=== PATIENT | male | born 1960 | race Caucasian/White ===

== ENCOUNTER 2023-11-01 08:59 | Outpatient (CLI) | payer MEDICARE, SELFPAY ==
[2023-11-01 09:36] LABS: Alanine Aminotransferase 48 U/L (6-50); Albumin Level 4.3 g/dL (3.5-5.1); Alkaline Phosphatase 85 U/L (38-126); Anion Gap 8 mmol/L (8-16); Aspartate Amino Transferase 40 U/L (17-59); Bilirubin,Total 0.5 mg/dL (0.2-1.3); Blood Urea Nitrogen 22 mg/dL (9-20); Calcium 9.1 mg/dL (8.4-10.2); Carbon Dioxide 28 mmol/L (22-30); Chloride 102 mmol/L (98-107); Cholesterol 207 mg/dL (0-200); Estimated Glomerular Filt Rate > 60; Glucose 114 mg/dL (65-110); HDL Direct 33 mg/dL; Potassium 4.5 mmol/L (3.4-5.0); Sodium 138 mmol/L (137-145); Triglycerides 193 mg/dL (<150)
[2023-11-01 09:47] LABS: LDL Cholesterol Direct 137 mg/dL
[2023-11-01 10:06] LABS: Prostate Specific Antigen 0.1 ng/mL (< OR = 4.0)
== END 2023-11-01 09:00 | disposition home or self-care (01) ==
PROVIDERS: PCP Nurse Practitioner; Referring Provider Orthopaedic Surgery; Visit Provider Nurse Practitioner
DX: Z79.899 Other long term (current) drug therapy (principal); Z13.29 Encounter for screening for other suspected endocrine disorder; Z12.5 Encounter for screening for malignant neoplasm of prostate; Z85.46 Personal history of malignant neoplasm of prostate; E55.9 Vitamin D deficiency, unspecified
CPT/HCPCS: 36415; 80053; 80061; 84153; 84443

== ENCOUNTER 2023-11-29 15:29 | Outpatient (CLI) | payer MEDICARE, SELFPAY ==
--- NOTE | ~2023-11-29 | CT_ITS ---
CT Scan of the Chest without Contrast: Clinical Indication: Lung cancer screening, personal history of nicotine dependence Technique: Contiguous sections were acquired throughout the chest without intravenous contrast. Dose reduction technique was used on this scan by utilizing automated exposure control and iterative recon struction technique. The dose-length product (DLP) was 143.08 mGy-cm. Findings: There is no evidence of any significant mediastinal, hilar or axillary lymphadenopathy. The mediastin al soft tissues appear normal. There is no evidence of pleural or pericardial effusion. The lungs are clear. No pulmonary nodules or infiltrates are noted. There is mild emphysema with mini mal biapical scarring. Images through the upper abdomen reveal no abnormalities. Impression: Lung RADS 1: Negative. 12 month follow-up screening CT advised. Reviewed, dictated and finalized at [facility]. [employer] Impression: Lung RADS 1: Negative. 12 month follow-up screening CT advised.
== END 2023-11-29 15:30 | disposition home or self-care (01) ==
LOC: ANHIMG 15:31
PROVIDERS: PCP Nurse Practitioner; Visit Provider Nurse Practitioner
DX: Z12.2 Encounter for screening for malignant neoplasm of respiratory organs (principal); Z87.891 Personal history of nicotine dependence
CPT/HCPCS: 71271

== ENCOUNTER 2024-01-09 01:04 | Day surgery (SDC) | payer MEDICARE, SELFPAY ==
[2024-01-01 13:54] VITALS: BMI 30.7
--- NOTE | 2024-01-05 10:29 | SUR.PREOP ---
Patient called regarding upcoming procedure. Reviewed preop instructions, appointment times, and procedure prep.
[2024-01-09 06:50] VITALS: BP 140/78; PULSE 95; RESP 18; TEMP 36.2; O2SAT 95
[2024-01-09] MEDS: LACTATED RINGERS 1,000 ML 150 ML IV CONT (07:03)
--- NOTE | 2024-01-09 07:21 | P.PNAN_ITS ---
Anes - Initial Pre Proc Eval Procedure: Operation Date: 01/09/24 08:00 Proposed Procedures p Screening Colonoscopy - Adryan Hu MD Date/Time: 01/09/24 07:21 Surgeon: Adryan Hu MD Pre Op Diagnosis: neoplasm screening Patient Data Age: 63 Gender: M Height: 1.68 m Weight: 85.5 kg Last Vital Signs Temp 97.1 F L 01/09/24 06:50 Pulse 95 01/09/24 06:50 Resp 18 01/09/24 06:50 BP 140/78 01/09/24 06:50 Pulse Ox 95 01/09/24 06:50 O2 Del Method Room Air 01/09/24 06:50 Allergies Allergy/AdvReac Type Severity Reaction Status Date / Time No Known Allergies Allergy Verified 01/09/24 06:49 Home Medications Medication Instructions Recorded Confirmed Type aspirin 81 mg tablet,delayed 81 mg PO DAILY 11/01/23 01/01/24 History release (Adult Low Dose Aspirin) cholecalciferol (vitamin D3) 100 600 mcg PO DAILY 11/01/23 01/01/24 History mcg (4,000 unit) tablet hydrocodone 5 mg-acetaminophen 300 1 tablet PO Q6H PRN Pain 11/01/23 01/01/24 History mg tablet atorvastatin 20 mg tablet 20 mg PO DAILY #30 tabs 11/05/23 01/01/24 Rx Patient hx anesthesia problems: none Family hx anesthesia problems: none Results Review: All pre-operative results and documents have been reviewed as part of the pre- operative evaluation. [facility] Past Medical History Medical History (Updated 11/01/23 @ 08:25 by Geronimo Fritz APRN) Fracture of left fibula Juvenile rheumatoid arthritis Prostate cancer 2010 Surgical History Surgical History (Updated 11/01/23 @ 07:53 by Geronimo Fritz APRN) History of left hip replacement History of prostatectomy History of right hip replacement Social History Social History (Updated 11/01/23 @ 07:58 by Geronimo Fritz APRN) Smoking packs per day: 1 Smoking cigarettes per day: 20.0 Years smoked: 56 Smoking pack-years: 56.00 Smoking status: Current every day smoker Tobacco type: cigarettes Second hand tobacco smoke exposure: Yes Alcohol intake: current Drinks per week: 12 Alcohol use details: BEERS Substance use: never Substance use type: does not use Living arrangements: with family Occupation/Education: retired 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 Gender identity (if verbalized by the patient): Male Sexual Orientation (if Verbalized by the Patient): Straight or Heterosexual Spiritual care concerns: No Anes - Eval Final PreProcedure Day of Procedure 01/09/24 07:21 Patient weight: obese Heart: regular rate and rhythm Lungs: clear to auscultation Airway: Mallampati scale class II Neurological: alert and oriented Last oral intake: >/= 8 hours ASA classification: III Emergent: no Anesthetic plan: proceed Anesthesia type and monitoring: general GIVS and standard monitoring Results Review: All pre-operative results and documents have been reviewed as part of the pre- operative evaluation. Informed Consent: The patient's anesthetic plan and its attendant risks and benefits were discussed with the patient/family/POA. Questions were solicited and answers provided to the satisfaction of the patient/family/POA.
--- NOTE | 2024-01-09 08:04 | PM.HPGS ---
History of Present Illness History of Present Illness Consent: Risks, benefits, and alternatives have been discussed and questions answered. Patient agrees to proceed with procedure. Chief complaint: neoplasm screening Narrative: Don Jaffe is a 63 year old male here for first screening colonoscopy Review of Systems Review of Systems: All systems reviewed & are unremarkable except as noted in HPI and below PMFSH Past Medical History Medical History (Updated 11/01/23 @ 08:25 by Geronimo Fritz APRN) Fracture of left fibula Juvenile rheumatoid arthritis Prostate cancer 2010 Surgical History Surgical History (Updated 11/01/23 @ 07:53 by Geronimo Fritz APRN) History of left hip replacement History of prostatectomy History of right hip replacement Social History Social History (Updated 11/01/23 @ 07:58 by Geronimo Fritz APRN) Smoking packs per day: 1 Smoking cigarettes per day: 20.0 Years smoked: 56 Smoking pack-years: 56.00 Smoking status: Current every day smoker Tobacco type: cigarettes Second hand tobacco smoke exposure: Yes Alcohol intake: current Drinks per week: 12 Alcohol use details: BEERMau Substance use: never Substance use type: does not use Living arrangements: with family Occupation/Education: retired 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 Gender identity (if verbalized by the patient): Male Sexual Orientation (if Verbalized by the Patient): Straight or Heterosexual Spiritual care concerns: No Meds Home Medications and Allergies Home Medications Medication Instructions Recorded Confirmed Type aspirin 81 mg tablet,delayed 81 mg PO DAILY 11/01/23 01/01/24 History release (Adult Low Dose Aspirin) cholecalciferol (vitamin D3) 100 600 mcg PO DAILY 11/01/23 01/01/24 History mcg (4,000 unit) tablet hydrocodone 5 mg-acetaminophen 300 1 tablet PO Q6H PRN Pain 11/01/23 01/01/24 History mg tablet atorvastatin 20 mg tablet 20 mg PO DAILY #30 tabs 11/05/23 01/01/24 Rx Allergies Allergy/AdvReac Type Severity Reaction Status Date / Time No Known Allergies Allergy Verified 01/09/24 06:49 Vital Signs Vital Signs - 24 hr 01/09/24 06:50 Temperature 97.1 F L Pulse Rate 95 Respiratory Rate 18 Blood Pressure 140/78 Pulse Oximetry 95 Oxygen Delivery Room Air Exam Const: General: comfortable and no acute distress HENMT: Face/Nose/Sinus: Normal nares present Eyes: General: appearance normal, both eyes and all related structures Neck: Neck: no JVD Resp: Auscultation: clear to auscultation bilaterally Cardio: Rate: regular rate Rhythm: regular rhythm GI: Inspection: non-distended GI Palp: Yes Soft to palpation Skin: General skin exam: normal color Neuro: General: gait normal Speech: normal speech Extrem: General: normal to inspection Psych: Mental Status: mental status grossly normal Assessment and Plan Assessment and plan (1) Screening for colon cancer: Code(s): Z12.11 - Encounter for screening for malignant neoplasm of colon Status: Acute Assessment and Plan: colonoscopy
[2024-01-09 08:06] VITALS: BP 117/68; PULSE 96; RESP 30; O2SAT 94
[2024-01-09 08:16] VITALS: BP 127/93; PULSE 95; RESP 15; O2SAT 96
[2024-01-09 08:26] VITALS: BP 139/87; PULSE 91; RESP 21; O2SAT 96
== END 2024-01-09 08:31 | disposition home or self-care (01) ==
PROVIDERS: PCP Nurse Practitioner; Visit Provider Internal Medicine Gastroenterology
PROC: 0DJD8ZZ Inspection of Lower Intestinal Tract, Via Natural or Artificial Opening Endoscopic (ICD-10-PCS; CPT 45378; principal; 2024-01-09 08:00)
DX: Z12.11 Encounter for screening for malignant neoplasm of colon (principal); D12.3 Benign neoplasm of transverse colon; K62.1 Rectal polyp; K64.8 Other hemorrhoids; K57.30 Diverticulosis of large intestine without perforation or abscess without bleeding; F17.210 Nicotine dependence, cigarettes, uncomplicated; E66.9 Obesity, unspecified; Z68.30 Body mass index [BMI] 30.0-30.9, adult; Z79.82 Long term (current) use of aspirin; Z79.891 Long term (current) use of opiate analgesic; Z98.890 Other specified postprocedural states; Z85.46 Personal history of malignant neoplasm of prostate
CPT/HCPCS: 45385; 88305; J2704; J7120

== ENCOUNTER 2024-12-13 08:17 | Outpatient (CLI) | payer MEDICARE, SELFPAY ==
--- NOTE | ~2024-12-13 | XR_ITS ---
EXAMINATION: XR chest 2V DATE: 12/13/2024 08:38 INDICATION: Acute cough. TECHNIQUE: Frontal and lateral views of the chest were obtained. COMPARISON: Chest CT 11/29/2023 FINDINGS: There is no pneumonia, pleural effusion, or pneumothorax. The heart size is normal. IMPRESSION: 1. No acute cardiopulmonary disease. Reviewed, dictated and finalized at location A. ANALYST
--- OUTSIDE RECORDS SUMMARY | 2024-12-13 08:24 | XMS_ITS | Data Portability ---
Author Organization [facility] Address [address] [place] [address] Assessment No assessment recorded. Plan of Treatment Reminders Order Date Submit Date Provider Last Modified By Organization Details Last Modified Time Details Appointments None record ed. Lab None record ed. Referral None record ed. Procedures None record ed. Surgeries None record ed. Imaging None record ed. Medication Orders None record ed. Patient TargetsNo targets recorded. Patient Instructions Encounter Date Encounter Id Patient Instructions Last Modified By Organization Details Last Modified Time 10/19/2016 [id number] deciding about using medicines to quit smoking UMAIR Not available 11/20/2016 05:02:09 Quitting Tobacco : Care Instructions UMAIR Not available 11/20/2016 05:02:09 chronic obstructive pulmonary disease (COPD): care instructions UMAIR Not available 11/20/2016 05:02:09 learning about copd and how to prevent lung infections UMAIR Not available 11/20/2016 05:02:09 hip arthritis: care instructions UMAIR Not available 11/20/2016 05:02:09 osteoarthritis: care instructions UMAIR Not available 11/20/2016 05:02:09 Dr. Peter Carreno office has been informed about the medical clearance,today at [phone]. [facility] Not available 10/19/2016 15:37:32 Reason for Referral None Reported. Results Created Date Observation Date Name Description Value Unit Range Abnormal Flag Note LastModifiedBy Organization Detail LastModifiedTime 10/17/19 17 10/14/2016 XR, chest , 2 view No observ ation record ed. [email or web address] [facility] (Imaging) [address] [place], [address], 12/12/2016 12:17:47 10/26/19 17 XR, hip + pelvi s, unila teral , 2 or 3 view No observ ation record ed. [email or web address] [facility] (Imaging) [address] [place], [address], 12/08/2016 12:20:03 10/26/19 17 10/25/2016 XR, hip + pelvi s, unila teral , 2 or 3 view No observ ation record ed. [facility] (Imaging) [address] [place], [address], 12/08/2016 11:42:41 07/13/20 20 07/13/2020 XR, chest , 2 view No observ ation record ed. [facility] (Imaging) [address] [place], [address], 07/13/2020 10:52:17 07/21/20 20 07/21/2020 XR, hip, unila teral No observ ation record ed. [facility] [address] [place], [address], 07/21/2020 14:44:40 Result Notes None recorded. Procedures Surgical History Date Name Laterality Status Provider Name and Address Organization Details Recorded Time Prostatectomy completed Frandy Mckenna MA [place] - [facility] 10/19/2016 12:06:30 Imaging Results Imaging Date Name Status LastModified by [facility] Details LastModified Time 10/14/2016 XR, chest, 2 view completed [email or web address] [facility] (Imaging) [address] [place], [address], 12/12/2016 12:17:47 10/26/2016 XR, hip + pelvis, unilateral, 2 or 3 view completed [email or web address] [facility] (Imaging) [address] [place], [address], 12/08/2016 12:20:03 10/25/2016 XR, hip + pelvis, unilateral, 2 or 3 view completed [facility] (Imaging) [address] [place], [address], 12/08/2016 11:42:41 07/13/2020 XR, chest, 2 view completed [facility] (Imaging) [address] [place], [address], 07/13/2020 10:52:17 07/21/2020 XR, hip, unilateral completed [facility] [address] [place], [address], 07/21/2020 14:44:40 Procedure Notes None recorded. Medical Equipment None Reported. Allergies No known drug allergies Medications Name Sig Start Date Stop Date Status Note LastModified by Organization Details LastModified Time hydrocodone 5 mg-acetaminophe n 325 mg tablet 10/19 completed Not Available Not Available Not Available hydrocodone 10 mg-acetaminophe n 325 mg tablet active Not Available Not Availa ble Not Available naproxen 500 mg tablet 10/19 completed Not Available Not Available Not Available amoxicillin 875 mg-potassium clavulanate 125 mg tablet active Not Available Not Available No t Available chlorhexidine gluconate 0.12 % mouthwash active Not Available Not Available Not Available Vitals Date Recorded Body height Body weight Body mass index (BMI) Body temperature Oxygen saturation Oxygen saturation in Arterial blood by Pulse oximetry Heart rate Systolic blood pressure Diastolic blood pressure Provider Name and Address Organization Details Last Updated DateTime 7 169.55 cm 76677.2 8 g 29 kg/m2 98.1 [degF] 95 % 95 % 91 /min 122 mm[Hg] 74 mm[Hg] Frandy Mckenna MA [facility] 7 12:03:55 Social History Question Answer Notes LastModified by Organizat ion Details LastModified Time Tobacco Smoking Status Former Smoker cigarettes Frandy Mckenna MA null, [place] - [facility] 10/19/2016 12:08:35 What Is Your Level Of Alcohol Consumption? Moderate Beer - 3x Week -- 6-7 Beers Information not available 10/19/2016 How Many Years Have You Smoked Tobacco? 50 Information not available 10/19/2016 Sex: Unknown Functional Status None recorded. Mental Status None recorded. Family History Nothing Reported. 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 Health Concerns Section Related Observation LastModified by Organization Detai ls LastModified Time None Recorded Concern Status LastModified by Organization Details LastModified Time None Recorded Advance Directives Directive None Recorded Payers Encounter Date Sequence Insurance Name Policy Number Policy Zafar Covered Member ID Zafar Member ID Guarantor Name 10/19/2016 1 [place] Don Jaffe [id number] Don Jaffe 07/20/2020 1 [place] Don Jaffe [id number] Don Jaffe Notes Date Note Type Note Provider Name and Address Organization Details Recorded Time 07/20/2020 text/html This is phone visit, due to butler virus pandemic, he understood and agreed , will have pre-surgical blood test , EKG and chest x ray. will have right hip operation in the near future, He had good recover from left hip operation. No ches t pain, mitchell shortness of breathing, . Thad Tucker MD Attn: Accounting,[address] [facility], [place], [address], [facility] 07/20/2020 16:59:09
--- OUTSIDE RECORDS SUMMARY | 2024-12-13 08:24 | XMS_ITS | CONTINUITY OF CARE DOCUMENT ---
Author Name warren kelley Address Unknown Organization [facility] Address [address] [place] [address] Phone [phone] Care Team Providers Care Advance Scout Name Role Phone Andrey LENNON, Pedro Unavailable RHEA LENNON, LAW Fofana Unavailable [phone] ROCHELLE LENNON, LETTY Unavailable [phone] INSURANCE PROVIDERS Payer name Policy type / Coverage type [place] red libertarian [place] Medicare [id number]
--- OUTSIDE RECORDS SUMMARY | 2024-12-13 08:24 | XMS_ITS | Data Portability ---
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 Fracture appears to be stable with weight-bearing in the boot. We will out to be partial weight-bearing as discomfort allows. I would like to see him back in 2 weeks with x-rays of the ankle as well as a weight-bearing AP to make sure he does not have any displacement or widening of medial clear space. If displacement and talar subluxation occurs, open reduction internal fixation would be recommended. I discussed signs and symptoms of DVT and he develops increased swelling he will need to call us will order ultrasound. We have I recommended that he keep the leg elevated above his heart whenever possible. Will continue using the walker wear the cam walker boot full-time. He can take the boot off for showers. I have suggested checking a 25 hydroxy vitamin-D level and will supplement this is low I would recommend he take a calcium supplement plus vitamin-D 1 pill twice daily. I will see him back in 2 weeks with x-rays as discussed. 30 minutes were spent in total care this patient more than half the time spent in [id number]-we-[id number] care. Not available 11/09/2023 15:25:14 11/09/2023 11/09/2023 HPI: Patient returns. He is now 2 weeks out from his left lateral malleolus fracture. This is being treated nonsurgically. He has been weight-bearing in the cam walker boot. Overall pain is very mild at this point. Original injury happened on October 25. Physical exam: Patient has very mild swelling to the lateral ankle. No swelling in the foot or in the calf. Mild tenderness over the lateral malleolus to palpation. Impression: Patient's left lateral malleolus fracture appears to be very stable. He has cut back on his smoking but not completely stopped. I recommend they stop completely as the smoking is going slow down healing process. He will continue with the boot inspector timers. I did recommend he take the boot off several times a day just to work on some dorsiflexion and plantar flexion of the foot to avoid stiffness of the Achilles tendon. He did have his blood work done for vitamin-D and we have not received the report yet. We will check on this. We will see him back in a month with new x-rays of the ankles that time. Not available 11/09/2023 10:15:17 12/07/2023 12/07/2023 HPI: patient returns. He is now six weeks out from left lateral malleolus fracture. He's having no symptoms in the ankle. He has walked a little bit at home without the boot on, and still having no pain. Physical exam: patient is walking in the boot, full, weight-bearing, and complaining of no pain. He has no swelling in the foot or ankle. No tenderness over the fracture area. He has full range of motion of the ankle. Impression: patient's left lateral malleolus fracture looks to be well healed on the x-rays. Patient is having no symptoms. He can discontinue the boot, as well as the baby aspirin twice a day. He declined formal physical therapy. at this point he is doing very well so we can see him as needed. Not available 12/07/2023 09:15:25 Plan of Treatment Reminders Order Date Submit Date Provider Last Modified By Organization Details Last Modified Time Details Appointments None recorded. Lab vitamin D, 25-hydrox y, total, serum 024 024 [facility] [address] [place], [address], 07:35:20 Referral None recorded. Procedures None recorded. Surgeries None recorded. Imaging XR, ankle 024 024 [facility], [address], [place], [address], 4 08:48:12 XR, ankle 024 024 [facility], [address] [place] [address], [place], [address], 4 11:27:23 XR, ankle 024 024 [email or web address] [facility], [address] [place] [address], [place], [address], 4 15:56:26 Medication Orders None recorded. Patient TargetsNo targets recorded. Patient InstructionsNo instructions recorded. Reason for Referral None Reported. Results Created Date Observation Date Name Description Value Unit Range Abnormal Flag Note LastModifiedBy Organization Detail LastModifiedTime 10/26/[address], head, w/o contr ast No observ ation record ed. [email or web address] Not Available 10/26 12:10:22 10/26/19 24 XR, foot No observ ation record ed. [email or web address] Not Available 10/09 14:14:46 10/26/19 24 XR, ankle No observ ation record ed. [email or web address] Not Available 10/26 12:10:05 11/09/19 24 XR, ankle No observ ation record ed. [email or web address] [facility] [address], [place], [address], 11/09/2023 10:13:05 11/09/19 24 XR, ankle No observ ation record ed. [facility] [address], [place], [address], 11/09/2023 15:22:58 12/07/19 24 XR, ankle No observ ation record ed. [email or web address] [facility] [address], [place], [address], 12/07/2023 09:13:43 Result Notes None recorded. Problems Name Problem SNOMED Code Status Onset Date Resolution Date Notes Provider Name and Address Organization Details Recorded Time Localized, primary osteoarthr itis of the pelvic region and thigh 803269343 Active Not Available [facility] 3 08:22:08 Hematoma 974839048 Active Not Available [facility] 3 08:22:08 Osteoarthr itis 243766298 Active Not Available [facility] 3 08:22:08 Pain of left ankle joint 5855067603240 9103 Active 2023 SHIRLEY Paez null, [facility] [employer] [facility] 4 15:42:45 Vitamin D deficiency 44885095 Active 2023 Julia Bennett CMA null, [facility] [employer] [facility] 4 16:24:46 Closed fracture of lateral malleolus 91178189 Active 2023 SHIRLEY Paez null, [facility] [employer] [facility] 4 08:57:52 Problem Notes None recorded. Procedures Surgical History Date Name Laterality Status Provider Name and Address Organization Details Recorded Time total replacement of hip completed SHIRLEY Paez [facility] [employer] [facility] 10/26/2023 15:42:11 Prostate completed SHIRLEY Paez [facility] [employer] [facility] 10/26/2023 15:42:19 Imaging Results Imaging Date Name Status LastModified by Organiz ation Details LastModified Time 10/26/2023 CT, head, w/o contrast completed [email or web address] Information not available 10/26/2023 12:10:22 10/26/2023 XR, foot completed [email or web address] Information n ot available 10/26/2023 14:14:46 10/26/2023 XR, ankle completed Information no t available 10/26/2023 12:10:05 11/09/2023 XR, ankle completed [email or web address] [facility] [address], [place], [address], 11/09/2023 10:13:05 11/09/2023 XR, ankle completed [facility] [address], [place], [address], 11/09/2023 15:22:58 12/07/2023 XR, ankle completed [email or web address] [facility] [address], [place], [address], 12/07/2023 09:13:43 Procedure Notes None recorded. Medical Equipment None Reported. Medications Name Sig Start Date Stop Date Status Note LastModified by Organization Details LastModified Time celecoxib 200 mg capsule 09/17 completed Not Available Not Available Not Available atorvastati n 20 mg tablet TAKE 1 TABLET BY MOUTH DAILY active Not Available Not Available No t Available azithromyci n 250 mg tablet TAKE 2 TABLETS BY MOUTH ON DAY 1 THEN TAKE 1 TABLET BY MOUTH ON DAYS 2-5 11/09 completed Not Available Not Available Not Available hydrocodone 5 mg-acetamin ophen 325 mg tablet TAKE 1 TABLET BY MOUTH EVERY 6 HOURS WITH FOOD NEEDED FOR PAIN active Not Available Not Available No t Available hydrocodone 10 mg-acetamin ophen 325 mg tablet Take 1 tablet every 4 hours by oral route as directed. 07/30 completed Not Available Not Available Not Available acetaminoph en 500 mg tablet 09/17 completed Not Available Not Available Not Available oxycodone-a cetaminophe n 5 mg-325 mg tablet 03/11 completed Not Available Not Available Not Available diclofenac 0.1 % eye drops 03/11 completed Not Available Not Available Not Available ibuprofen 600 mg tablet 03/11 completed Not Available Not Available Not Available levofloxaci n 500 mg tablet TK 1 T PO Q 24 H UTD 03/11 completed Not Available Not Available Not Available ketoconazol e 2 % topical cream APPLY TO THE AFFECTED AREA(S) BY TOPICAL ROUTE ONCE DAILY active Not Available Not Available No t Available naproxen 500 mg tablet 03/11 completed Not Available Not Available Not Available amoxicillin 875 mg-potassiu m clavulanate 125 mg tablet 07/02 completed Not Available Not Available Not Available oxycodone 5 mg tablet 10/26 completed Not Available Not Available Not Available enoxaparin 40 mg/0.4 mL subcutaneou s syringe 03/11 completed Not Available Not Available Not Available Vigamox 0.5 % eye drops 03/11 completed Not Available Not Available Not Available chlorhexidi ne gluconate 0.12 % mouthwash 07/02 completed Not Available Not Available Not Available acetaminoph en 07/30 completed Not Available Not Available Not Available oxycodone 10 mg tablet Take 1 tablet every 4 hours by oral route. 03/11 completed Not Available Not Available Not Available Durezol 0.05 % eye drops 03/11 completed Not Available Not Available Not Available Eliquis 2.5 mg tablet TK 1 T PO Q 12 H. 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 30ormorepacky ears [email or web address] Information not available 10/26/2023 How Much Tobacco Do You Smoke? 1 PPD [email or web address] Information not available 10/26/2023 Sex: Unknown Functional Status None recorded. Mental Status None recorded. Family History Nothing Reported Notes:Pt metion none on medi hesham history. Medical History No medical history recorded. Past Encounters Encounter ID Performer Location Encounter Start Date Encounter Closed Date Diagnosis/Indication Diagnosis SNOMED-CT Code Diagnosis ICD10 Code Diagnosis Note [id number] Peter Carreno MD [facility] [address] [place] [address] 10/26/2023 15:10:40 11/09/2023 15:56:26 Pain of left ankle joint 4818611912 4260631 M25.572 Vitamin D deficiency 347 90165 E55.9 [id number] ANNE Narvaez [facility] [address] [place] [address] 11/09/2023 09:40:44 11/09/2023 10:41:18 Pain of left ankle joint 3811144725 7588052 M25.365 [id number] ANNE Narvaez [facility] [address] [place] [address] 12/07/2023 08:52:44 12/07/2023 09:16:49 Closed fracture of lateral malleolus 53202966 S82.62XD Health Concerns Section Related Observation LastModified by Organization Detai ls LastModified Time None Recorded Concern Status LastModified by Organization Details LastModified Time None Recorded Advance Directives Directive None Recorded Payers Encounter Date Sequence Insurance Name Policy Number Policy Zafar Covered Member ID Zafar Member ID Guarantor Name 10/26/2023 1 [employer] - PRIME (MEDICARE REPLACEMENT/ ADVANTAGE - HMO) [id number] Don E Alannah [id number] Don E Alannah 11/09/2023 1 [employer] - [employer]IME (MEDICARE REPLACEMENT/ ADVANTAGE - HMO) [id number] Don E Alannah [id number] Don E Alannah 12/07/2023 1 [employer] - PRIME (MEDICARE REPLACEMENT/ ADVANTAGE - HMO) [id number] Don E Alannah [id number] Don E Alannah Notes Date Note Type Note Provider Name and Address Organization Details Recorded Time 10/26/2023 text/html patient is a 63-year-old gentleman who presents with a minimally displaced left Cruz B lateral malleolus fracture. He got up in the middle the night had a dizzy spell and fainted and apparently hit his head. He still gets headaches intermittently he is scheduled to see Dr. Wilcox in 6 days for follow-up. X-rays of his left ankle demonstrate a minimally displaced Cruz B lateral malleolus fracture as an isolated fracture doubt other fractures noted and there was no evidence of widening of medial clear space. the fracture is best visualized on the lateral x-ray view is not well seen on the AP at all. The His past medical history is significant for the prior hip replacement surgeries and knees are doing well. He has had a prior prostatectomy. He continues to smoke 1 pack of cigarettes per day. He has been advised to stop smoking at this time. I explained that there is high risk of blood clots in smokers. I have recommended that he take a chewable baby aspirin 81 mg 1 in the morning 1 in the evening every day for the next 6 weeks to help reduce the risk of DVT. The Peter Carreno MD [address] [place] [address], [facility] [address], [place], [address], [facility] 11/09/2023 15:25:33
[2024-12-13 09:22] LABS: Prostate Specific Antigen 0.1 ng/mL (< OR = 4.0)
== END 2024-12-13 08:18 | disposition home or self-care (01) ==
PROVIDERS: PCP Nurse Practitioner Family; Visit Provider Nurse Practitioner Family
DX: R05.1 Acute cough (principal); Z12.5 Encounter for screening for malignant neoplasm of prostate; Z85.46 Personal history of malignant neoplasm of prostate
CPT/HCPCS: 36415; 71046; 84153; G0103

== ENCOUNTER 2025-01-08 10:08 | Outpatient (CLI) | payer MEDICARE, SELFPAY ==
--- NOTE | ~2025-01-08 | CT_ITS ---
CT Scan of the Chest without Contrast: Clinical Indication: Lung cancer screening, nicotine dependence Technique: Contiguous sections were acquired throughout the chest without intravenous contrast. Dose reduction technique was used on this scan by utilizing automated exposure control and iterative recon struction technique. The dose-length product (DLP) was 135.29 mGy-cm. COMPARISON: 11/29/2023 Findings: There is no evidence of any significant mediastinal, hilar or axillary lymphadenopathy. The mediastin al soft tissues appear normal. There is no evidence of pleural or pericardial effusion. There is mild emphysema with linear right apical scarring. No pulmonary nodule evident. Images through the upper abdomen reveal no abnormalities. Impression: Lung RADS 1: Negative. 12 month follow-up CT advised. Reviewed, dictated and finalized at [facility]. Impression: Lung RADS 1: Negative. 12 month follow-up CT advised.
--- OUTSIDE RECORDS SUMMARY | 2025-01-08 11:24 | XMS_ITS | Data Portability ---
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 Not available 11/09/2023 15:25:14 11/09/2023 11/09/2023 [...] process. 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 I did recommend he take the boot [...] D, 25-hydrox y, total, serum 024 024 [facility] ([facility] [address] [place], [address], 07:35:20 Referral None recorded. Procedures None recorded. Surgeries None recorded. Imaging XR, ankle 024 024 [facility], [address], [place], [address], 4 08:48:12 XR, ankle 024 024 [facility], [address] [place] [address], [place], [address], 4 11:27:23 XR, ankle 024 024 [email or web address] [facility], [address] [place] [address], [place], [address], 4 15:56:26 Medication Orders None recorded. Patient TargetsNo targets recorded. Patient InstructionsNo instructions recorded. Reason for Referral None Reported. Results Created Date Observation Date Name Description Value Unit Range Abnormal Flag Note LastModifiedBy Organization Detail LastModifiedTime 10/26/[address], head, w/o contr ast No observ ation record ed. [email or web address] Not Available 10/26 12:10:22 10/26/19 24 XR, foot No observ ation record ed. [email or web address] Not Available 10/09 14:14:46 10/26/19 24 XR, ankle No observ ation record ed. [email or web address] Not Available 10/26 12:10:05 11/09/19 24 XR, ankle No observ ation record ed. [email or web address] [facility] [address], [place], [address], 11/09/2023 10:13:05 11/09/19 24 XR, ankle No observ ation record ed. [facility] [address], [place], [address], 11/09/2023 15:22:58 12/07/19 24 XR, ankle No observ ation record ed. [email or web address] [facility] [address], [place], [address], 12/07/2023 09:13:43 Result Notes None recorded. Problems Name Problem SNOMED Code Status Onset Date Resolution Date Notes Provider Name and Address Organization Details Recorded Time Localized, primary osteoarthr itis of the pelvic region and thigh 798132132 Active Not Available [facility] 3 08:22:08 Hematoma 412215108 Active Not Available [facility] 3 08:22:08 Osteoarthr itis 241859390 Active Not Available [facility] 3 08:22:08 Pain of left ankle joint 5537755892319 9103 Active 2023 SHIRLEY Paez null, [facility] [employer] [facility] 4 15:42:45 Vitamin D deficiency 12126013 Active 2023 Julia Bennett CMA null, [facility] [employer] [facility] 4 16:24:46 Closed fracture of lateral malleolus 68542864 Active 2023 SHIRLEY Paez null, [facility] [employer] [facility] 4 08:57:52 Problem Notes None recorded. Procedures Surgical History Date Name Laterality Status Provider Name and Address Organization Details Recorded Time total replacement of hip completed SHIRLEY Paez [facility] [employer] [facility] 10/26/2023 15:42:11 Prostate completed SHIRLEY Paez [facility] [employer] [facility] 10/26/2023 15:42:19 Imaging Results Imaging Date Name Status LastModified by Organiz ation Details LastModified Time 10/26/2023 CT, head, w/o contrast completed [email or web address] Information not available 10/26/2023 12:10:22 10/26/2023 XR, foot completed [email or web address] Information n ot available 10/26/2023 14:14:46 10/26/2023 XR, ankle completed Information no t available 10/26/2023 12:10:05 11/09/2023 XR, ankle completed [email or web address] [facility] [address], [place], [address], 11/09/2023 10:13:05 11/09/2023 XR, ankle completed [facility] [address], [place], [address], 11/09/2023 15:22:58 12/07/2023 XR, ankle completed [email or web address] [facility] [address], [place], [address], 12/07/2023 09:13:43 Procedure Notes None recorded. Medical [...] Trina Wyatt, SHIRLEY null, [place] [employer] 10/26/2023 15:41:55 What Is Your Occupation? None [id number] Information not available 12/07/2022 What Is Your Current Pack Years? 30ormorepacky ears [email or web address] Information not available 10/26/2023 How Much Tobacco Do You Smoke? 1 PPD [email or web address] Information not available 10/26/2023 Sex: Unknown Functional Status None recorded. Mental Status None recorded. Family History Nothing Reported Notes:Pt metion none on medi hesham history. Medical History No medical history recorded. Past Encounters Encounter ID Performer Location Encounter Start Date Encounter Closed Date Diagnosis/Indication Diagnosis SNOMED-CT Code Diagnosis ICD10 Code Diagnosis Note [id number] Peter Carreno MD [facility] [address] [place] [address] 10/26/2023 15:10:40 11/09/2023 15:56:26 Pain of left ankle joint 8550688791 3214466 M25.572 Vitamin D deficiency 347 93528 E55.9 [id number] ANNE Narvaez [facility] [address] [place] [address] 11/09/2023 09:40:44 11/09/2023 10:41:18 Pain of left ankle joint 7285094246 0433621 M25.400 [id number] ANNE Narvaez [facility] [address] [place] [address] 12/07/2023 08:52:44 12/07/2023 09:16:49 Closed fracture of lateral malleolus 57139466 S82.62XD Health Concerns Section Related Observation LastModified by Organization Detai ls LastModified Time None Recorded Concern Status LastModified by Organization Details LastModified Time None Recorded Advance Directives Directive None Recorded Payers Encounter Date Sequence Insurance Name Policy Number Policy Zafar Covered Member ID Zafar Member ID Guarantor Name 10/26/2023 1 [employer] - PRIME (MEDICARE REPLACEMENT/ ADVANTAGE - HMO) [id number] Don E Alannah [id number] Don E Alannah 11/09/2023 1 [employer] - [employer]IME (MEDICARE REPLACEMENT/ ADVANTAGE - HMO) [id number] Don E Alannah [id number] Don E Alannah 12/07/2023 1 [employer] - PRIME (MEDICARE REPLACEMENT/ ADVANTAGE - HMO) [id number] Don E Alannah [id number] Don E Alannah Notes Date Note Type [...] risk of DVT. The Peter Carreno MD [address] [place] [address], [facility] [address], [place], [address], [facility] 11/09/2023 15:25:33
--- OUTSIDE RECORDS SUMMARY | 2025-01-08 11:24 | XMS_ITS | Data Portability ---
Author Organization [facility] Address [address] [place] [address] Assessment No assessment recorded. Plan of Treatment [...] By Organization Details Last Modified Time 10/19/2016 [id number] deciding about using medicines to quit smoking [...] been informed about the medical clearance,today at [phone]. [facility] Not available 10/19/2016 15:37:32 Reason for Referral None Reported. Results Created Date Observation Date Name Description Value Unit Range Abnormal Flag Note LastModifiedBy Organization Detail LastModifiedTime 10/17/19 17 10/14/2016 XR, chest , 2 view No observ ation record ed. [email or web address] [facility] (Imaging) [address] [place], [address], 12/12/2016 12:17:47 10/26/19 17 XR, hip + pelvi s, unila teral , 2 or 3 view No observ ation record ed. [email or web address] [facility] (Imaging) [address] [place], [address], 12/08/2016 12:20:03 10/26/19 17 10/25/2016 XR, hip + pelvi s, unila teral , 2 or 3 view No observ ation record ed. [facility] (Imaging) [address] [place], [address], 12/08/2016 11:42:41 07/13/20 20 07/13/2020 XR, chest , 2 view No observ ation record ed. [facility] (Imaging) [address] [place], [address], 07/13/2020 10:52:17 07/21/20 20 07/21/2020 XR, hip, unila teral No observ ation record ed. [facility] [address] [place], [address], 07/21/2020 14:44:40 Result Notes None recorded. Procedures Surgical History Date Name Laterality Status Provider Name and Address Organization Details Recorded Time Prostatectomy completed Frandy Mckenna MA [place] - SIF 10/19/2016 12:06:30 Imaging Results Imaging Date Name Status [facility] Details LastModified Time 10/14/2016 XR, chest, 2 view completed [email or web address] [facility] (Imaging) [address] [place], [address], 12/12/2016 12:17:47 10/26/2016 XR, hip + pelvis, unilateral, 2 or 3 view completed [email or web address] [facility] (Imaging) [address] [place], [address], 12/08/2016 12:20:03 10/25/2016 XR, hip + pelvis, unilateral, 2 or 3 view completed [facility] (Imaging) [address] [place], [address], 12/08/2016 11:42:41 07/13/2020 XR, chest, 2 view completed [facility] (Imaging) [address] [place], [address], 07/13/2020 10:52:17 07/21/2020 XR, hip, unilateral completed [facility] [address] [place], [address], 07/21/2020 14:44:40 Procedure Notes None recorded. 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 Health Concerns Section Related Observation LastModified by Organization Detai ls LastModified Time None Recorded Concern Status LastModified by Organization Details LastModified Time None Recorded Advance Directives Directive None Recorded Payers Encounter Date Sequence Insurance Name Policy Number Policy Zafar Covered Member ID Zafar Member ID Guarantor Name 10/19/2016 1 [place] Don Jaffe [id number] Don Jaffe 07/20/2020 1 [place] Don Jaffe [id number] Don Jaffe Notes Date Note Type [...] breathing, . Thad Tucker MD Attn: Accounting,[address] [facility], [place], [address], [facility] 07/20/2020 16:59:09
--- OUTSIDE RECORDS SUMMARY | 2025-01-08 11:24 | XMS_ITS | CONTINUITY OF CARE DOCUMENT ---
Author Name deantimowarren Address Unknown Organization [facility] Address [address] [place] [address] Phone [phone] Care Team Providers Care Quality Intern Name Role Phone Andrey LENNON, Pedro Unavailable RHEA LENNON, LAW Fofana Unavailable [phone] ROCHELLE LENNON, LETTY Unavailable [phone] INSURANCE PROVIDERS Payer name Policy type / Coverage type Freeland red green party ID [place] [employer] Medicare [id number]
== END 2025-01-08 10:09 | disposition home or self-care (01) ==
PROVIDERS: PCP Nurse Practitioner Family; Visit Provider Nurse Practitioner Family
DX: Z12.2 Encounter for screening for malignant neoplasm of respiratory organs (principal); Z87.891 Personal history of nicotine dependence
CPT/HCPCS: 71271

== ENCOUNTER 2025-01-13 10:17 | Outpatient (CLI) | payer MEDICARE, SELFPAY ==
--- NOTE | ~2025-01-13 | XR_ITS ---
Left ankle Technique: AP, oblique, and lateral views were obtained. Clinical History: Pain Findings: No acute fracture or dislocation is seen. Probable old, healed fracture of the distal fibul a. Osseous alignment is anatomic. Small plantar calcaneal spur. Ankle mortise and other visualized mayela int spaces are preserved. Soft tissues are otherwise unremarkable. Impression: No acute abnormality. Reviewed, dictated and finalized at location . Impression: No acute abnormality.
--- NOTE | ~2025-01-13 | XR_ITS ---
Lumbosacral Spine: AP and lateral views Clinical History: Pain Findings: The normal lordotic curve is maintained. No fracture seen. There is 9 mm anterolisthesis of L4 over L5. There is moderate to advanced facet arthropathy from L3 through S1. There is moderate de generative disc narrowing at L4-L5. The sacroiliac joints are normally outlined. Impression: 9 mm anterolisthesis of L4 over L5. Moderate degenerative spondylosis. Reviewed, dictated and finalized at location M. Impression: 9 mm anterolisthesis of L4 over L5. Moderate degenerative spondylosis.
--- NOTE | ~2025-01-13 | XR_ITS ---
Left Hand Technique: PA, oblique, and lateral views were obtained. Clinical History: Pain Findings: No acute fracture or dislocation is seen. Osseous alignment is anatomic. There is severe de generative change of the first CMC joint. There is mild degenerative change of the first MCP joint. T here is moderate degenerative change of the third MCP joint. Soft tissues are unremarkable. Impression: Degenerative changes, as above, worst at the first CMC joint. Reviewed, dictated and finalized at location M. Impression: Degenerative changes, as above, worst at the first CMC joint.
--- NOTE | ~2025-01-13 | XR_ITS ---
Right Hand Technique: PA, oblique, and lateral views were obtained. Clinical History: Pain Findings: No acute fracture or dislocation is seen. Osseous alignment is anatomic. There is moderate degenerative change of the first CMC joint, second DIP joint, and third MCP joint. Soft tissues are u nremarkable. Impression: Degenerative changes, as above. Reviewed, dictated and finalized at location . Impression: Degenerative changes, as above.
--- NOTE | ~2025-01-13 | XR_ITS ---
Right ankle Technique: AP, oblique, and lateral views were obtained. Clinical History: Pain Findings: No acute fracture or dislocation is seen. Osseous alignment is anatomic. Ankle mortise and other visualized joint spaces are preserved. Plantar calcaneal spur noted. Soft tissues are otherwise unremarkable. Impression: Unremarkable right ankle, aside from plantar calcaneal spur. Reviewed, dictated and finalized at location . Impression: Unremarkable right ankle, aside from plantar calcaneal spur.
--- OUTSIDE RECORDS SUMMARY | 2025-01-13 11:44 | XMS_ITS | Data Portability ---
Author Organization [facility] Address [address] [place] [address] Assessment No assessment recorded. Plan of Treatment [...] By Organization Details Last Modified Time 10/19/2016 [id number] deciding about using medicines to quit smoking [...] been informed about the medical clearance,today at [phone]. [facility] Not available 10/19/2016 15:37:32 Reason for Referral None Reported. Results Created Date Observation Date Name Description Value Unit Range Abnormal Flag Note LastModifiedBy Organization Detail LastModifiedTime 10/17/19 17 10/14/2016 XR, chest , 2 view No observ ation record ed. [email or web address] [facility] (Imaging) [address] [place], [address], 12/12/2016 12:17:47 10/26/19 17 XR, hip + pelvi s, unila teral , 2 or 3 view No observ ation record ed. [email or web address] [facility] (Imaging) [address] [place], [address], 12/08/2016 12:20:03 10/26/19 17 10/25/2016 XR, hip + pelvi s, unila teral , 2 or 3 view No observ ation record ed. [facility] (Imaging) [address] [place], [address], 12/08/2016 11:42:41 07/13/20 20 07/13/2020 XR, chest , 2 view No observ ation record ed. [facility] (Imaging) [address] [place], [address], 07/13/2020 10:52:17 07/21/20 20 07/21/2020 XR, hip, unila teral No observ ation record ed. [facility] [address] [place], [address], 07/21/2020 14:44:40 Result Notes None recorded. Procedures Surgical History Date Name Laterality Status Provider Name and Address Organization Details Recorded Time Prostatectomy completed Frandy Mckenna MA [place] - SIF 10/19/2016 12:06:30 Imaging Results Imaging Date Name Status LastModified by [facility]iz [facility] Details LastModified Time 10/14/2016 XR, chest, 2 view completed [email or web address] [facility] (Imaging) [address] [place], [address], 12/12/2016 12:17:47 10/26/2016 XR, hip + pelvis, unilateral, 2 or 3 view completed [email or web address] [facility] (Imaging) [address] [place], [address], 12/08/2016 12:20:03 10/25/2016 XR, hip + pelvis, unilateral, 2 or 3 view completed [facility] (Imaging) [address] [place], [address], 12/08/2016 11:42:41 07/13/2020 XR, chest, 2 view completed [facility] (Imaging) [address] [place], [address], 07/13/2020 10:52:17 07/21/2020 XR, hip, unilateral completed [facility] [address] [place], [address], 07/21/2020 14:44:40 Procedure Notes None recorded. Medical [...] Details Last Updated DateTime 7 169.55 cm 77586.2 8 g 29 kg/m2 98.1 [degF] 95 % 95 % 91 /min 122 mm[Hg] 74 mm[Hg] Frandy Mckenna MA 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 Health Concerns Section Related Observation LastModified by Organization Detai ls LastModified Time None Recorded Concern Status LastModified by Organization Details LastModified Time None Recorded Advance Directives Directive None Recorded Payers Encounter Date Sequence Insurance Name Policy Number Policy Zafar Covered Member ID Zafar Member ID Guarantor Name 10/19/2016 1 [place] Don Jaffe [id number] Don Jaffe 07/20/2020 1 [place] Don Jaffe [id number] Don Jaffe Notes Date Note Type [...] breathing, . Thad Tucker MD Attn: Accounting,[address] [facility], [place], [address], [facility] - SI 07/20/2020 16:59:09
--- OUTSIDE RECORDS SUMMARY | 2025-01-13 11:44 | XMS_ITS | CONTINUITY OF CARE DOCUMENT ---
Author Name deantimowarren Address Unknown Organization [facility] Address [address] [place] [address] Phone [phone] Care Team Providers Care Typist Name Role Phone Andrey LENNON, Pedro Unavailable [phone] RHEA LENNON, LWA Fofana Unavailable ROCHELLE LENNON, LETTY Unavailable [phone] INSURANCE PROVIDERS Payer name Policy type / Coverage type [place]umann red libertarian ID [place] [employer] Medicare [id number]
--- OUTSIDE RECORDS SUMMARY | 2025-01-13 11:44 | XMS_ITS | Data Portability ---
Author Organization [facility] Main Office Address [address] [place] [address] Care Team Providers Care Cream Dumper Name Role Phone BILLYEZRAIN Primary Care Provider BILLY DIEGO Referring Provider [phone] Assessment Encounter Date Assessment Date Assessment LastModified [...] more than half the time spent in [id number] care. Not available 11/09/2023 15:25:14 11/09/2023 11/09/2023 [...] process. 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 Procedures None recorded. Surgeries None recorded. Imaging XR, ankle 024 024 [facility], [address], [place], [address], 4 08:48:12 XR, ankle 024 024 [facility], [address] [place] [address], [place], [address], 4 11:27:23 XR, ankle 024 024 [email or web address] [facility], [address] [place] [address], [place], [address], 4 15:56:26 Medication Orders None recorded. Patient TargetsNo targets recorded. Patient InstructionsNo instructions recorded. Reason for Referral None Reported. Results Created Date Observation Date Name Description Value Unit Range Abnormal Flag Note LastModifiedBy Organization Detail LastModifiedTime 10/26/[address], head, w/o contr ast No observ ation record ed. Not Available 10/26 12:10:22 10/26/19 24 XR, foot No observ ation record ed. [email or web address] Not Available 10/09 14:14:46 10/26/19 24 XR, ankle No observ ation record ed. [email or web address] Not Available 10/26 12:10:05 11/09/19 24 XR, ankle No observ ation record ed. [email or web address] [facility] [address], [place], [address], 11/09/2023 10:13:05 11/09/19 24 XR, ankle No observ ation record ed. [facility] [address], [place], [address], 11/09/2023 15:22:58 12/07/19 24 XR, ankle No observ ation record ed. [email or web address] [facility] [address], [place], [address], 12/07/2023 09:13:43 Result Notes None recorded. Problems Name Problem SNOMED Code Status Onset Date Resolution Date Notes Provider Name and Address Organization Details Recorded Time Localized, primary osteoarthr itis of the pelvic region and thigh 890638712 Active Not Available [facility] 3 08:22:08 Hematoma 822167246 Active Not Available [facility] 3 08:22:08 Osteoarthr itis 056266167 Active Not Available [facility] 3 08:22:08 Pain of left ankle joint 7856135838055 9103 Active 2023 SHIRLEY Paez null, [facility] [employer] [facility] 4 15:42:45 Vitamin D deficiency 97239119 Active 2023 Julia Bennett CMA null, [facility] [employer] [facility] 4 16:24:46 Closed fracture of lateral malleolus 63146141 Active 2023 SHIRLEY Paez null, [facility] [employer] [facility] 4 08:57:52 Problem Notes None recorded. Procedures Surgical History Date Name Laterality Status Provider Name and Address Organization Details Recorded Time total replacement of hip completed SHIRLEY Paez [facility] [employer] [facility] 10/26/2023 15:42:11 Prostate completed SHIRLEY Paez [facility] [employer] [facility] 10/26/2023 15:42:19 Imaging Results Imaging Date Name Status LastModified by Organiz ation Details LastModified Time 10/26/2023 CT, head, w/o contrast completed [email or web address] Information not available 10/26/2023 12:10:22 10/26/2023 XR, foot completed [email or web address] Information n ot available 10/26/2023 14:14:46 10/26/2023 XR, ankle completed [email or web address] Information no t available 10/26/2023 12:10:05 11/09/2023 XR, ankle completed [email or web address] [facility] [address], [place], [address], 11/09/2023 10:13:05 11/09/2023 XR, ankle completed [facility] [address], [place], [address], 11/09/2023 15:22:58 12/07/2023 XR, ankle completed [email or web address] [facility] [address], [place], [address], 12/07/2023 09:13:43 Procedure Notes None recorded. 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 [email or web address] ears [email or web address] Information not available 10/26/2023 How Much Tobacco Do You Smoke? 1 PPD [email or web address] Information not available 10/26/2023 Sex: Unknown Functional Status None recorded. Mental Status None recorded. Family History Nothing Reported Notes:Pt metion none on medi hesham history. Medical History No medical history recorded. Past Encounters Encounter ID Performer Location Encounter Start Date Encounter Closed Date Diagnosis/Indication Diagnosis SNOMED-CT Code Diagnosis ICD10 Code Diagnosis Note [id number] Peter Carreno MD [facility] [address] [place] [address] 10/26/2023 15:10:40 11/09/2023 15:56:26 Pain of left ankle joint 8723161315 4484302 M25.572 Vitamin D deficiency 347 30266 E55.9 [id number] ANNE Narvaez [facility] [address] [place] [address] 11/09/2023 09:40:44 11/09/2023 10:41:18 Pain of left ankle joint 6439583489 4807315 M25.753 [id number] ANNE Narvaez [facility] [address] [place] [address] 12/07/2023 08:52:44 12/07/2023 09:16:49 Closed fracture of lateral malleolus 55355840 S82.62XD Health Concerns Section Related Observation LastModified by Organization Detai ls LastModified Time None Recorded Concern Status LastModified by Organization Details LastModified Time None Recorded Advance Directives Directive None Recorded Payers Encounter Date Sequence Insurance Name Policy Number Policy Zafar Covered Member ID Zafar Member ID Guarantor Name 10/26/2023 1 [employer] (MEDICARE REPLACEMENT/ ADVANTAGE - HMO) [id number] Don E Alannah [id number] Don E Alannah 11/09/2023 1 [employer] (MEDICARE REPLACEMENT/ ADVANTAGE - HMO) [id number] Don E Alannah [id number] Don E Alannah 12/07/2023 1 [employer] (MEDICARE REPLACEMENT/ ADVANTAGE - HMO) [id number] Don E Alannah [id number] Don E Alannah Notes Date Note Type [...] risk of DVT. The Peter Carreno MD [address] [place] [address], [facility] [[email or web address]] [address], [place], [address], [facility] 11/09/2023 15:25:33
== END 2025-01-13 10:18 | disposition home or self-care (01) ==
PROVIDERS: PCP Nurse Practitioner Family; Visit Provider Pain Medicine Interventional Pain Medicine
DX: M43.16 Spondylolisthesis, lumbar region (principal); M47.816 Spondylosis without myelopathy or radiculopathy, lumbar region; M18.11 Unilateral primary osteoarthritis of first carpometacarpal joint, right hand; M19.041 Primary osteoarthritis, right hand; M19.042 Primary osteoarthritis, left hand; M25.572 Pain in left ankle and joints of left foot; M25.571 Pain in right ankle and joints of right foot
CPT/HCPCS: 72100; 73130; 73610